=== PATIENT | female | born 1945 | race Caucasian/White ===

== ENCOUNTER 2019-08-06 21:59 | Emergency (ER) | payer MEDICARE, BC ==
--- NOTE | 2019-08-06 22:08 | EDM.PDOC ---
ED HPI GENERAL MEDICAL PROBLEM - General Chief Complaint: Chest Pain Stated Complaint: CHEST PAIN Time Seen by Provider: 08/06/19 22:20 Source of Information: Reports: Patient History Limitations: Reports: Other (no old records) - History of Present Illness INITIAL COMMENTS - FREE TEXT/NARRATIVE: 73 yo female presents with mild anterior chest tightness that began tonight after dinner while at rest. She eventually took her BP and noted that it was much higher than normal so came in to be seen. She has no new SOB, nausea or diaphoresis. She is a [facility] patient normally so we have no old records on her. She recently had a cardiac work up for [facility] and they found one small blockage only. She is going here to cardiac rehab mainly for deconditioning. She denies any recent unilateral calf pain or swelling. She has not missed any of her BP meds lately. Says a recent BP at cardiac rehab was just under 140/80. She has NTG at home, but did not take it. Is here with her . Onset: Today, Sudden Onset Date: 08/06/19 Duration: Hour(s): (about 4 hrs), Constant Location: Reports: Chest Quality: Reports: Dull Severity: Mild Improves with: Reports: None Worsens with: Reports: Other (unknown) Context: Reports: Other (see HPI) Associated Symptoms: Reports: Other (feels a little flushed) Treatments [employer]: Reports: Other (see below) (none) chest pain Pain Score (Numeric/FACES): 3 - Related Data Allergies Allergy/AdvReac Type Severity Reaction Status Date / Time latex Allergy Rash Verified 08/06/19 22:05 Penicillins Allergy Rash Verified 08/06/19 22:05 Sulfa (Sulfonamide Allergy Rash Verified 08/06/19 22:05 Antibiotics) tomato Allergy Rash Verified 08/06/19 22:05 Home Meds: Home Meds Bisoprolol/Hydrochlorothiazide [Bisoprolol-Hctz 10-6.25 mg Tab] 1 tab PO DAILY 08/06/19 [History] Isosorbide Mononitrate [Imdur] 30 mg PO DAILY 08/06/19 [History] Levothyroxine [Synthroid] 50 mcg PO DAILY 08/06/19 [History] Nitroglycerin 0.4 mg PO ASDIRECTED PRN 08/06/19 [History] Oxybutynin Chloride 5 mg PO BEDTIME 08/06/19 [History] Rosuvastatin Calcium 5 mg PO BEDTIME 08/06/19 [History] lisinopriL [Lisinopril] 5 mg PO DAILY 08/06/19 [History] metFORMIN [Glucophage] 500 mg PO DAILY 08/06/19 [History] ED ROS GENERAL - Review of Systems Review Of Systems: See Below Constitutional: Reports: No Symptoms HEENT: Reports: No Symptoms Respiratory: Reports: No Symptoms Cardiovascular: Reports: Chest Pain (mild anterior tightness), Blood Pressure Problem (elevated tonight), Dyspnea on Exertion (chronic). Denies: Edema, Lightheadedness, Orthopnea, Palpitations, PND, Syncope Endocrine: Reports: No Symptoms GI/Abdominal: Reports: No Symptoms : Reports: No Symptoms Musculoskeletal: Reports: No Symptoms Skin: Reports: No Symptoms Neurological: Reports: No Symptoms ED EXAM, GENERAL - Physical Exam Exam: See Below Exam Limited By: No Limitations General Appearance: Alert, WD/WN, No Apparent Distress, Obese Eye Exam: Bilateral Eye: Normal Inspection Ears: Normal External Exam, Normal Canal, Hearing Grossly Normal, Normal TMs Ear Exam: Bilateral Ear: Auricle Normal, Canal Normal Nose: Normal Inspection, No Blood Throat/Mouth: Normal Inspection, Normal Lips, Normal Oropharynx, Normal Voice, No Airway Compromise Head: Atraumatic, Normocephalic Neck: Normal Inspection Respiratory/Chest: No Respiratory Distress, Lungs Clear, Normal Breath Sounds, No Accessory Muscle Use. No: Chest Non-Tender (tenderness noted just to the L of her midsternum. ) Cardiovascular: Regular Rate, Rhythm, No Edema GI/Abdominal: Normal Bowel Sounds, Soft, Non-Tender, No Distention Back Exam: Normal Inspection Extremities: Normal Inspection, Normal Range of Motion, Non-Tender, No Pedal Edema Neurological: Alert, Oriented, CN II-XII Intact, Normal Cognition, No Motor/ Sensory Deficits Psychiatric: Normal Affect, Normal Mood Skin Exam: Warm, Dry, Intact, Normal Color, No Rash EKG INTERPRETATION EKG Date: 08/06/19 Time: 21:55 Rhythm: NSR Rate (Beats/Min): 70 [place]: Normal P-Wave: Present QRS: Normal ST-T: Depressed (<1 mm in V4-V6) QT: Normal Comparison: NA - No Prior EKG Course - Vital Signs Text/Narrative:: Chest tightness gone after NTG 0.4 mg SL x 1, BP came down to 160 systolic Ativan 0.5 mg po given next, this seemed to keep her BP in the 160's, but no other change noted. Walked the [place] with her nurse several times with no increase in her chest pain or other sx's. Last Recorded V/S: Last Vital Signs Temp 36.1 C 08/06/19 22:15 Pulse 64 08/06/19 23:39 Resp 17 08/06/19 23:39 BP 167/81 H 08/06/19 23:54 Pulse Ox 94 L 08/06/19 23:39 - Orders/Labs/Meds Orders: Active Orders 24 hr Category Date Time Status Cardiac Monitoring [RC] .As Directed Care 08/06/19 22:05 Active EKG Documentation Completion [RC] ASDIRECTED Care 08/06/19 22:05 Active Nitroglycerin [Nitrostat] Med 08/06/19 22:29 Active 0.4 mg SL Q5M PRN EKG 12 Lead [EK] Routine Ther 08/06/19 22:05 Ordered Medication Orders Nitroglycerin (Nitrostat) 0.4 mg SL Q5M PRN PRN Reason: Chest Pain Last Admin: 08/06/19 22:42 Dose: 0.4 mg Labs: Laboratory Tests 08/06/19 Range/Units 22:30 Sodium 139 L (140-148) mmol/L Potassium 3.8 (3.6-5.2) mmol/L Chloride 103 (100-108) mmol/L Carbon Dioxide 27 (21-32) mmol/L Anion Gap 12.8 (5.0-14.0) mmol/L BUN 21 H (7-18) mg/dL Creatinine 0.9 (0.6-1.0) mg/dL Est Cr Clr Drug Dosing 44.69 mL/min Estimated GFR (MDRD) > 60 (>60) Glucose 135 H (74-106) mg/dL Calcium 8.8 (8.5-10.1) mg/dL Troponin I < 0.017 (0.000-0.056) ng/mL Meds: Medications Generic Name Dose Route Start Last Admin Trade Name Freq PRN Reason Stop Dose Admin Nitroglycerin 0.4 mg 08/06/19 22:29 08/06/19 22:42 Nitrostat SL 0.4 mg Q5M PRN Administration Chest Pain Discontinued Medications Generic Name Dose Route Start Last Admin Trade Name Neela PRN Reason Stop Dose Admin Aspirin 324 mg 08/06/19 22:29 08/06/19 22:39 Aspirin PO 08/06/19 22:30 324 mg ONETIME ONE Administration Lisinopril 20 mg 08/06/19 23:41 08/06/19 23:54 Prinivil PO 08/06/19 23:42 20 mg ONETIME ONE Administration Lorazepam 0.5 mg 08/06/19 22:54 08/06/19 22:59 Ativan PO 08/06/19 22:55 0.5 mg ONETIME ONE Administration Departure - Departure Time of Disposition: 00:14 Disposition: Home, Self-Care 01 Condition: Fair Clinical Impression: Nonspecific chest pain HTN (hypertension) Qualifiers: Hypertension type: unspecified Qualified Code(s): I10 - Essential (primary) hypertension Instructions: Nonspecific Chest Pain, [id number], Hypertension, [id number] Referrals: PCP,None [Primary Care Provider] - Forms: ED Department Discharge Additional Instructions: Increase your lisinopril to 20 mg every day at bedtime. Continue your other medications as currently. See your doctor soon for a BP recheck. Avoid salt or salty foods. Return if worse. Sepsis Event Note - Focused Exam Vital Signs: Vital Signs Temp Pulse Resp BP BP Pulse Ox 08/06/19 23:54 167/81 H 08/06/19 23:39 64 17 167/81 H 94 L 08/06/19 23:09 63 15 178/81 H 96 08/06/19 23:01 60 16 171/91 H 96 08/06/19 22:45 63 12 166/91 H 96 08/06/19 22:42 199/101 H 08/06/19 22:38 63 14 199/101 H 96 08/06/19 22:28 65 15 201/100 H 96 08/06/19 22:15 36.1 C 69 10 L 204/96 H 97 08/06/19 22:10 36.1 C 69 10 L 204/96 H 97 Date Exam was Performed: 08/07/19 Time Exam was Performed: 00:13 - My Orders Last 24 Hours: My Active Orders 08/06/19 22:05 Cardiac Monitoring [RC] .As Directed EKG Documentation Completion [RC] ASDIRECTED EKG 12 Lead [EK] Routine 08/06/19 22:29 Nitroglycerin [Nitrostat] 0.4 mg SL Q5M PRN - Assessment/Plan Last 24 Hours: My Active Orders 08/06/19 22:05 Cardiac Monitoring [RC] .As Directed EKG Documentation Completion [RC] ASDIRECTED EKG 12 Lead [EK] Routine 08/06/19 22:29 Nitroglycerin [Nitrostat] 0.4 mg SL Q5M PRN
[2019-08-06] MEDS ORDERED: Aspirin 81 MG Tab.Chew PO ONE (22:29)
[2019-08-06] MEDS ORDERED: Nitroglycerin 0.4 MG Tab.SL SL PRN (22:29)
[2019-08-06] MEDS ORDERED: LORazepam 0.5 MG Tab PO ONE (22:54)
[2019-08-06] MEDS ORDERED: Lisinopril 10 MG Tab PO ONE (23:41)
== END 2019-08-07 00:22 | disposition home or self-care (01) ==
LOC: JP.ED 21:59
DX: R07.89 Other chest pain (principal); I10 Essential (primary) hypertension; Z88.0 Allergy status to penicillin; Z88.2 Allergy status to sulfonamides; Z91.040 Latex allergy status; Z91.018 Allergy to other foods; Z79.899 Other long term (current) drug therapy
CPT/HCPCS: 36415; 80048; 84484; 93005; 93010; 99283; 99285; A9270

== ENCOUNTER 2023-11-21 10:52 | Emergency (ER) | payer MEDICARE, BC ==
[2023-11-21 11:47] LABS: BASOPHILS ABSOLUTE AUTO 0.06 K/uL (0.00-0.10); BASOPHILS PERCENT AUTO 0.6 % (0.1-1.3); EOSINOPHILS ABSOLUTE AUTO 0.15 K/uL (0.00-0.40); EOSINOPHILS PERCENT AUTO 1.6 % (0.0-5.4); HEMATOCRIT 34.6 % (34.3-46.0); HEMOGLOBIN 11.8 g/dL (11.2-15.5); IMMATURE GRAN ABSOLUTE AUTO 0.04 K/uL (0.00-0.23); IMMATURE GRAN PERCENT AUTO 0.4 % (0.0-0.7); LYMPHOCYTES ABSOLUTE AUTO 1.98 K/uL (0.8-3.3); LYMPHOCYTES PERCENT AUTO 20.6 % (11.4-47.7); MEAN CORPUSCULAR HEMOGLOBIN 29.4 pg (31.6-35.5); MEAN CORPUSCULAR HGB CONC 34.1 g/dL (31.6-35.5); MEAN CORPUSCULAR VOLUME 86.3 fL (81.4-99.0); MONOCYTES ABSOLUTE AUTO 0.58 K/uL (0.20-0.90); NEUTROPHILS ABSOLUTE AUTO 6.78 K/uL (1.0-7.6); NEUTROPHILS PERCENT AUTO 70.8 % (40.0-78.1); PLATELET COUNT,PLT 112 K/uL (130-375); RED BLOOD CELL COUNT 4.01 M/uL (3.77-5.24); WHITE BLOOD CELL COUNT,WBC 9.6 K/uL (3.2-11.0)
[2023-11-21 12:05] LABS: PROTHROMBIN TIME 10.2 sec (9.2-10.6); PTT,PARTIAL THROMBOPLSTIN TIME 26.2 sec (21.8-27.3)
[2023-11-21 12:15] LABS: BLOOD UREA NITROGEN,BUN 19 mg/dL (7-18); CALCIUM 9.7 mg/dL (8.5-10.1); CARBON DIOXIDE,CO2 29 mmol/L (21-32); CHLORIDE,CL 103 mmol/L (100-108); CREATININE 0.8 mg/dL (0.6-1.0); EST CRCL DRUG DOSING (CG) 46.58 mL/min; ESTIMATED GFR 76 mL/min (>60); GLUCOSE RANDOM 131 mg/dL (74-106); MAGNESIUM 1.8 mg/dL (1.8-2.4); PHOSPHORUS 3.9 mg/dL (2.5-4.9); POTASSIUM,K 4.2 mmol/L (3.6-5.2); PRO B-TYPE NATRIUR PEPT,BNPPRO 92 pg/mL (5-450); SODIUM,NA 139 mmol/L (140-148); TROPONIN I HIGH SENSITIVITY 6.4 pg/mL (<=60.3)
[2023-11-21 12:16] LABS: ANION GAP 11.2 mmol/L (5.0-14.0); C-REACTIVE PROTEIN < 0.50 mg/dL (<0.50)
[2023-11-21 12:44] LABS: APPEARANCE,URINE SLIGHTLY CLOUDY (CLEAR); BILIRUBIN,URINE NEGATIVE (NEGATIVE); COLOR,URINE YELLOW (YELLOW); GLUCOSE,URINE NEGATIVE (NEGATIVE); KETONES,URINE NEGATIVE (NEGATIVE); LEUKOCYTE ESTERASE,URINE NEGATIVE (NEGATIVE); NITRITE,URINE NEGATIVE (NEGATIVE); OCCULT BLOOD,URINE NEGATIVE (NEGATIVE); PROTEIN,URINE NEGATIVE (NEGATIVE); UROBILINOGEN,URINE 0.2 EU/dL (0.2-1.0)
[2023-11-21 12:52] LABS: AMORPHOUS SEDIMENT,URINE RARE; BACTERIA,URINE NOT SEEN; EPITHELIAL CELLS,URINE NOT SEEN; MUCUS,URINE NOT SEEN; RBC,URINE 0-5 (0-5); WBC,URINE 0-5 (0-5)
== END 2023-11-21 15:36 | disposition home or self-care (01) ==
LOC: JP.ED 10:52
DX: I20.89 Other forms of angina pectoris (principal); I10 Essential (primary) hypertension; E11.9 Type 2 diabetes mellitus without complications; Z91.040 Latex allergy status; Z88.0 Allergy status to penicillin; Z88.2 Allergy status to sulfonamides; Z79.899 Other long term (current) drug therapy; Z79.84 Long term (current) use of oral hypoglycemic drugs; Z79.82 Long term (current) use of aspirin; Z95.5 Presence of coronary angioplasty implant and graft; Z79.02 Long term (current) use of antithrombotics/antiplatelets; Z90.710 Acquired absence of both cervix and uterus
CPT/HCPCS: 36415; 71046; 71046-26; 80048; 81001; 83735; 83880; 84100; 84484; 85025; 85379; 85610; 85730; 86140; 93005; 99285

== ENCOUNTER 2023-11-22 02:01 | Emergency (ER) | payer MEDICARE, BC ==
[2023-11-22 02:36] LABS: BASOPHILS ABSOLUTE AUTO 0.05 K/uL (0.00-0.10); BASOPHILS PERCENT AUTO 0.6 % (0.1-1.3); EOSINOPHILS ABSOLUTE AUTO 0.15 K/uL (0.00-0.40); EOSINOPHILS PERCENT AUTO 1.8 % (0.0-5.4); HEMATOCRIT 36.9 % (34.3-46.0); HEMOGLOBIN 12.5 g/dL (11.2-15.5); IMMATURE GRAN ABSOLUTE AUTO 0.04 K/uL (0.00-0.23); IMMATURE GRAN PERCENT AUTO 0.5 % (0.0-0.7); LYMPHOCYTES ABSOLUTE AUTO 1.86 K/uL (0.8-3.3); LYMPHOCYTES PERCENT AUTO 22.5 % (11.4-47.7); MEAN CORPUSCULAR HEMOGLOBIN 29.3 pg (31.6-35.5); MEAN CORPUSCULAR HGB CONC 33.9 g/dL (31.6-35.5); MEAN CORPUSCULAR VOLUME 86.6 fL (81.4-99.0); MONOCYTES ABSOLUTE AUTO 0.49 K/uL (0.20-0.90); MONOCYTES PERCENT AUTO 5.9 % (3.3-12.6); NEUTROPHILS ABSOLUTE AUTO 5.68 K/uL (1.0-7.6); NEUTROPHILS PERCENT AUTO 68.7 % (40.0-78.1); PLATELET COUNT,PLT 124 K/uL (130-375); RED BLOOD CELL COUNT 4.26 M/uL (3.77-5.24); WHITE BLOOD CELL COUNT,WBC 8.3 K/uL (3.2-11.0)
[2023-11-22 02:58] LABS: ANION GAP 9.1 mmol/L (5.0-14.0); BLOOD UREA NITROGEN,BUN 19 mg/dL (7-18); CALCIUM 9.9 mg/dL (8.5-10.1); CARBON DIOXIDE,CO2 29 mmol/L (21-32); CHLORIDE,CL 102 mmol/L (100-108); CREATININE 0.9 mg/dL (0.6-1.0); ESTIMATED GFR 66 mL/min (>60); GLUCOSE RANDOM 119 mg/dL (74-106); POTASSIUM,K 3.6 mmol/L (3.6-5.2); SODIUM,NA 140 mmol/L (140-148); TROPONIN I HIGH SENSITIVITY 7.1 pg/mL (<=60.3)
== END 2023-11-22 03:59 | disposition home or self-care (01) ==
LOC: JP.ED 02:01
DX: R07.89 Other chest pain (principal); E11.9 Type 2 diabetes mellitus without complications; Z88.0 Allergy status to penicillin; Z88.2 Allergy status to sulfonamides; Z91.040 Latex allergy status; Z79.82 Long term (current) use of aspirin; Z79.84 Long term (current) use of oral hypoglycemic drugs; Z90.710 Acquired absence of both cervix and uterus
CPT/HCPCS: 36415; 80048; 84484; 85025; 85379; 93005; 93010; 99283; 99285